=== PATIENT | female | born 1990 | race Caucasian/White ===

== ENCOUNTER 2016-05-21 09:03 | Day surgery (SDC) | payer OTHER ==
[2016-05-19 10:49] LABS: ALANINE AMINOTRANSFERASE 70 U/L (9-52); ALBUMIN 4.2 g/dL (3.5-5.0); ALKALINE PHOSPHATASE 152 U/L (38-126); ANION GAP 12 (5-19); ASPARTATE AMINO TRANSFERASE 29 U/L (14-36); BILIRUBIN,TOTAL 0.5 mg/dL (0.2-1.3); BLOOD UREA NITROGEN 9 mg/dL (7-20); CALCIUM 10.2 mg/dL (8.4-10.2); CARBON DIOXIDE 25 mmol/L (22-30); CHLORIDE 105 mmol/L (98-107); CREATININE RESULT 0.68 mg/dL (0.52-1.25); GLUCOSE 82 mg/dL (75-110); POTASSIUM 4.6 mmol/L (3.6-5.0); SODIUM 141.9 mmol/L (137-145); TOTAL PROTEIN 7.8 g/dL (6.3-8.2)
[~2016-05-21 09:03] MED LIST: AMPICILLIN SODIUM/SULBACTAM NA 3 GM in NORMAL SALINE 100 ML IV PRN; BUPIVACAINE INJ/PF LIPOSOME/PF 266 MG/20 ML SDV ONE; LACTATED RINGERS 1000 ML IV PRN; LIDOCAINE 0.5% INJ-PF (5 MG/ML) 50 ML SDV SUBCUT PRN
[2016-05-21] MEDS ORDERED: KETOROLAC TROMETHAMINE 60 MG/2 ML SDV ONE (09:34)
[2016-05-21] MEDS ORDERED: GLYCOPYRROLATE INJ 0.4 MG/2 ML VIAL ONE (09:34)
[2016-05-21] MEDS ORDERED: ONDANSETRON HCL INJ/PF 4 MG/2 ML SDV ONE (09:34)
[2016-05-21] MEDS ORDERED: DEXAMETHASONE SOD PHOSPHATE INJ 4 MG/1 ML VIAL ONE (09:34)
[2016-05-21] MEDS ORDERED: NEOSTIGMINE METHYLSULFATE 10 MG/10 ML VIAL ONE (09:34)
[2016-05-21] MEDS ORDERED: SUCCINYLCHOLINE CHLORIDE INJ 200 MG/10 ML VIAL ONE (09:34)
[2016-05-21] MEDS ORDERED: MIDAZOLAM 2 MG/2 ML INJ ONE (10:50)
[2016-05-21] MEDS ORDERED: PROPOFOL INJ 200 MG/20 ML VIAL IV ONE (10:50)
[2016-05-21] MEDS ORDERED: FENTANYL CITRATE INJ/PF 250 MCG/5 ML AMPULE ONE (10:50)
[2016-05-21] MEDS ORDERED: ACETAMINOPHEN 100 ML IV ONE (10:51)
[2016-05-21] MEDS ORDERED: PROMETHAZINE HCL INJ 25 MG/1 ML VIAL IV PRN ×2 (11:28)
[2016-05-21] MEDS ORDERED: MEPERIDINE HCL/PF INJ 25 MG/1 ML DISP.SYRIN IV PRN (11:28)
[2016-05-21] MEDS ORDERED: MORPHINE SULFATE 10 MG/ML INJ IV PRN ×2 (11:28→12:18)
[2016-05-21] MEDS ORDERED: DIPHENHYDRAMINE HCL 50 MG/ML VIAL IV PRN (11:28)
[2016-05-21] MEDS ORDERED: OXYCODONE-ACETAMINOPHEN 5-325 MG TABLET PO PRN ×3 (11:28→12:18)
[2016-05-21] MEDS ORDERED: FENTANYL CITRATE INJ/PF 100 MCG/2 ML AMPUL IV PRN ×3 (11:28)
--- NOTE | 2016-05-21 12:15 | Brief Operative Note ---
BRIEF OPERATIVE REPORT DATE OF SURGERY: 05/21/16 TIME OF SURGERY: 12:13 PREOPERATIVE DIAGNOSIS: Chronic cholecystitis POSTOPERATIVE DIAGNOSIS: Chronic cholecystitis SURGEON: DARLENE HA FINDINGS: Pericholecystic adhesions COMPLICATIONS: None ESTIMATED BLOOD LOSS: 5 ml TISSUE REMOVED OR ALTERED: Gallbladder and contents TECHNICAL PROCEDURE: Laparoscopic cholecystectomy
[2016-05-21] MEDS ORDERED: ONDANSETRON HCL INJ/PF 4 MG/2 ML SDV IV PRN (12:18)
--- NOTE | 2016-05-21 12:18 | PDOC DISCHARGE SUMMARY ---
Discharge Summary (SDC) - Discharge Final Diagnosis: Chronic cholecystitis Date of Surgery: 05/21/16 Discharge Date: 05/21/16 Condition: Good Forms: Post Operative Prescriptions: Docusate Sodium [Colace 100 mg Capsule] 100 mg PO BID #60 capsule Ibuprofen [Motrin 800 mg Tablet] 800 mg PO Q8H PRN #40 tab PRN Reason: Oxycodone HCl/Acetaminophen [Percocet 5-325 mg Tablet] 1 - 2 tab PO ASDIR PRN # 40 tablet PRN Reason: Discharge Diet: As Tolerated, Clear Liquids Respiratory Treatments at Home: Deep Breathing/Coughing, Incentive Spirometer Discharge Activity: Balance Activity w/Rest, No Lifting Over 10 Pounds, Slowly Increase Activity Home Care Assistance: Provided by Family Report the Following to Your Physician Immediately: Nausea, Vomiting, Increase in Pain, Yellow Skin, Fever over 101 Degrees, Drainage-Foul Smelling
[2016-05-21] MEDS: FENTANYL CITRATE INJ/PF 100 MCG/2 ML AMPUL ONE ×2 (12:30→12:35)
[2016-05-21] MEDS ORDERED: PROMETHAZINE HCL INJ 25 MG/1 ML VIAL ONE (12:42)
[2016-05-21] MEDS: MORPHINE SULFATE 10 MG/ML INJ ONE ×2 (12:45→12:50)
--- NOTE | 2016-05-21 13:13 | OPERATIVE REPORT E ---
Operative Report NAME: RIK PRINCE : 1990 AGE: 25Y DATE OF SURGERY: 05/21/2016 ROOM: PREOPERATIVE DIAGNOSIS: Chronic cholecystitis. POSTOPERATIVE DIAGNOSIS: Chronic cholecystitis. PROCEDURE: Laparoscopic cholecystectomy. SURGEON: DARLENE HA M.D. SALES TEAM LEADER: None. ANESTHESIA: General endotracheal anesthesia and Exparel 1.3%. FLUIDS: IV crystalloid. ESTIMATED BLOOD LOSS: 5 mL. FINDINGS: Pericholecystic adhesions. DRAINS: None. INSTRUMENT COUNT: Correct x2. IMPLANTS: None. INDICATIONS: This is a 25-year-old female who presented to the emergency department complaining of abdominal pain. The patient was evaluated and noted to have slight increase in her ALT and alkaline phosphatase. Ultrasound was performed demonstrating possible cholelithiasis and biliary sludge. The common bile duct was noted to be at 9 mm; however, there was no obvious choledocholithiasis. The patient had repeat liver function tests preoperatively, which demonstrated stability of her ALT and alkaline phosphatase with no evidence of hyperbilirubinemia. She had no history of jaundice, and therefore, she was consented for laparoscopic cholecystectomy with possible intraoperative cholangiogram. SPECIMEN: Gallbladder contents. COMPLICATIONS: None. TECHNIQUE: After informed consent was obtained, including explanation of benefits and risks of bleeding, infection, cystic duct stump leak, bile duct injury, retained gallstones, need to convert to open procedure, injury to surrounding structures, poor wound healing, chronic pain, the patient was taken to the operating room and placed supine on the operating room table. After adequate IV sedation, the patient was placed under general endotracheal anesthesia. The patient received perioperative antibiotic prophylaxis. The patient's abdomen was prepped and draped sterilely. A timeout was taken. A 5 mm incision was then made just above the umbilicus and carried down through the skin and subcutaneous tissue. Using the optical trocar and a 5 mm 30 degree scope, the peritoneal cavity was entered under direct visualization. Pneumoperitoneum was established. Three additional trocars were placed. A 12 mm trocar in the right subxiphoid and 2 additional 5 mm trocars in the right upper quadrant. Gallbladder fundus was then retracted cephalad and the infundibulum laterally. The patient was noted to have pericholecystic adhesions, which were taken down using combination of blunt and sharp dissection with electrocautery. Upon evaluation of the gallbladder, the patient had a normal-appearing common bile duct at cystic duct junction with no obvious transmural abnormalities consistent with obstruction or common bile duct dilatation. No gallstones could be palpated in the proximal common bile duct or cystic duct. The critical view was obtained using lateral to medial dissection to expose 2 tubular structures originating from the gallbladder with the liver visible posteriorly. A 5 mm Endoclip copier repair technician was used to place 3 Endoclips proximally on the cystic duct, 1 distally, and 2 clips proximally on the cystic artery and 1 distally. The cystic artery and duct were transected using Endo Viri. The gallbladder was then dissected off the gallbladder fossa using hook electrocautery, being sure to observe for subvesical ducts or vascular anomalies. There was no evidence of either. The gallbladder was removed in its entirety without spillage of stones or bile. The gallbladder was then placed in an Endo Catch bag and removed through 12 mm trocar site. The gallbladder fossa, cystic artery, and cystic duct remnant were then re-evaluated and there was no evidence of bleeding or spillage of bile. The right upper quadrant trocars were then removed under direct visualization and pneumoperitoneum was released. The 12 mm trocar was closed using a 0 Vicryl suture and a suture passer. The skin was closed using a 4-0 Monocryl subcuticular stitch. Dermabond was applied followed by Exparel. The patient tolerated the procedure well without complication and was extubated and transferred to recovery unit in stable and good condition. DICTATING PHYSICIAN: DARLENE HA M.D. [id number] PHY#: [id number] ID: [id number] JOB#: [id number] ACCT: [id number] cc:DARLENE HA M.D. > MTDD
[2016-05-21 14:59] VITALS: BP 123/67
== END 2016-05-21 14:53 | disposition home or self-care (01) ==
LOC: OROUT 09:03
PROVIDERS: ATTEND Surgery
PROC: 0FT44ZZ Resection of Gallbladder, Percutaneous Endoscopic Approach (ICD-10-PCS; principal; 2016-05-21 11:00)
DX: K80.10 Calculus of gallbladder with chronic cholecystitis without obstruction (principal); Z79.84 Long term (current) use of oral hypoglycemic drugs; Z79.899 Other long term (current) drug therapy
CPT/HCPCS: 36415; 81025; 80053; 88304 ×2; 47562; J2250; J1100; J1885; J3010 ×2; J0295; J2270; J2550; J0330; J2405; J2704; J0131; C9290; 790

== ENCOUNTER 2017-07-30 08:52 | Emergency (ER) | payer OTHER ==
[2017-07-30] MEDS ORDERED: ONDANSETRON HCL INJ/PF 4 MG/2 ML SDV IV ONE ×2 (09:25→10:26)
[2017-07-30] MEDS ORDERED: KETOROLAC TROMETHAMINE INJ/PF 30 MG/1 ML SDV IV ONE (09:25)
--- NOTE | 2017-07-30 09:26 | ER Document Report ---
ED Medical Screen (RME) - General Chief Complaint: Possible Kidney Stone Stated Complaint: FLANK PAIN Time Seen by Provider: 07/30/17 09:20 Notes: 26-year-old female patient with some left lower quadrant groin pain for 2 days got acutely worse about 730 this morning. Had noted blood in urine since last night. Last kidney stone was passed about 2 years ago. Last menstrual period was January, patient has PCO S and states she is not . I have greeted and performed a rapid initial assessment of this patient. A comprehensive ED assessment and evaluation of the patient, analysis of test results and completion of the medical decision making process will be conducted by additional ED providers. TRAVEL OUTSIDE OF THE [place] IN LAST 30 DAYS: No - Related Data Allergies/Adverse Reactions: gluten [Gluten] Allergy (Verified 07/30/17 09:17) Past Medical History - Social History Chew tobacco use (# tins/day): No Frequency of alcohol use: None Drug Abuse: None - Past Medical History Cardiac Medical History: Denies: Hx Coronary Artery Disease, Hx Heart Attack, Hx Hypertension Pulmonary Medical History: Denies: Hx Asthma, Hx Bronchitis, Hx COPD, Hx Pneumonia Neurological Medical History: Denies: Hx Cerebrovascular Accident, Hx Seizures Renal/ Medical History: Reports: Hx Kidney Stones. Denies: Hx Peritoneal Dialysis Musculoskeltal Medical History: Denies Hx Arthritis - Immunizations Hx Diphtheria, Pertussis, Tetanus Vaccination: Yes Physical Exam - Vital signs Vitals: Temp Pulse Resp BP Pulse Ox 98.4 F 76 22 H 119/77 98 07/30/17 08:55 07/30/17 08:55 07/30/17 08:55 07/30/17 08:55 07/30/17 08:55 Course - Vital Signs Vital signs: Temp Pulse Resp BP Pulse Ox 98.4 F 76 22 H 119/77 98 07/30/17 08:55 07/30/17 08:55 07/30/17 08:55 07/30/17 08:55 07/30/17 08:55
[2017-07-30] MEDS ORDERED: NORMAL SALINE 1000 ML 1,000 ML IV ONE (09:27)
[2017-07-30 09:57] LABS: ABSOLUTE BASOPHILS # (AUTO) 0.1 10^3/uL (0.0-0.2); ABSOLUTE EOSINOPHILS # (AUTO) 0.2 10^3/uL (0.0-0.6); ABSOLUTE LYMPHOCYTES (AUTO) 1.7 10^3/uL (0.5-4.7); ABSOLUTE MONOCYTES (AUTO) 0.5 10^3/uL (0.1-1.4); ABSOLUTE NEUT (AUTO) 5.9 10^3/uL (1.7-8.2); BASOPHILS % (AUTO) 0.8 % (0-2); HEMATOCRIT 38.5 % (36.0-47.0); HEMOGLOBIN 13.1 g/dL (12.0-15.5); LYMPHOCYTES % (AUTO) 20.4 % (13-45); MEAN CORPUSCULAR HEMOGLOBIN 28.3 pg (27.0-33.4); MEAN CORPUSCULAR HGB CONC 33.9 g/dL (32.0-36.0); MEAN CORPUSCULAR VOLUME 84 fl (80-97); MONOCYTES % (AUTO) 6.5 % (3-13); PLATELET COUNT 363 10^3/uL (150-450); RED BLOOD COUNT 4.61 10^6/uL (3.72-5.28); SEGMENTED NEUTROPHILS % (AUTO) 70.3 % (42-78); TOTAL CELLS COUNTED % (AUTO) 100 %; WHITE BLOOD COUNT 8.4 10^3/uL (4.0-10.5)
[2017-07-30 10:12] LABS: ALANINE AMINOTRANSFERASE 52 U/L (9-52); ALBUMIN 4.2 g/dL (3.5-5.0); ALKALINE PHOSPHATASE 136 U/L (38-126); ANION GAP 14 (5-19); ASPARTATE AMINO TRANSFERASE 35 U/L (14-36); BILIRUBIN,DIRECT 0.2 mg/dL (0.0-0.4); BILIRUBIN,TOTAL 0.2 mg/dL (0.2-1.3); BLOOD UREA NITROGEN 16 mg/dL (7-20); CALCIUM 10.5 mg/dL (8.4-10.2); CARBON DIOXIDE 20 mmol/L (22-30); CHLORIDE 110 mmol/L (98-107); GLUCOSE 99 mg/dL (75-110); POTASSIUM 4.7 mmol/L (3.6-5.0); SODIUM 143.7 mmol/L (137-145)
[2017-07-30 10:25] LABS: APPEARANCE,URINE CLEAR; BILIRUBIN,URINE NEGATIVE (NEGATIVE); COLOR,URINE STRAW; GLUCOSE, URINE NEGATIVE (NEGATIVE); KETONES,URINE NEGATIVE (NEGATIVE); LEUKOCYTE ESTERASE,URINE NEGATIVE (NEGATIVE); NITRITE,URINE NEGATIVE (NEGATIVE); PROTEIN,URINE NEGATIVE (NEGATIVE); URINE SPECIFIC GRAVITY 1.013; UROBILINOGEN,URINE NEGATIVE mg/dL (<2.0)
[2017-07-30] MEDS ORDERED: HYDROMORPHONE HCL INJ/PF 2 MG/ML AMPULE IV ONE (10:25)
[2017-07-30] MEDS ORDERED: TAMSULOSIN HCL 0.4 MG CAP.SR.24H PO ONE (10:26)
--- NOTE | 2017-07-30 10:26 | ER Document Report ---
ED GI/ - General Chief Complaint: Possible Kidney Stone Stated Complaint: FLANK PAIN Time Seen by Provider: 07/30/17 09:20 Notes: 26-year-old female patient emergency department chief complaint of lower abdominal pain. Patient states that "I am having a kidney stone". Patient states that she has met multiple kidney stones in the past. Blood in her urine. No fever, chills, sweats. No burning with urination prior to this. Has had lithotripsy in the past. Had some bilateral flank pain but mostly on the right side. TRAVEL OUTSIDE OF THE [place] IN LAST 30 DAYS: No - HPI Patient complains to provider of: Hematuria Onset: Just prior to arrival Timing/Duration: Sudden, Worse - Related Data Allergies/Adverse Reactions: gluten [Gluten] Allergy (Verified 07/30/17 09:17) Past Medical History - General Information source: Patient - Social History Smoking Status: Current Every Day Smoker Cigarette use (# per day): Yes Chew tobacco use (# tins/day): No Frequency of alcohol use: None Drug Abuse: None Lives with: Family Family History: Reviewed & Not Pertinent Patient has suicidal ideation: No Patient has homicidal ideation: No - Past Medical History Cardiac Medical History: Denies: Hx Coronary Artery Disease, Hx Heart Attack, Hx Hypertension Pulmonary Medical History: Denies: Hx Asthma, Hx Bronchitis, Hx COPD, Hx Pneumonia Neurological Medical History: Denies: Hx Cerebrovascular Accident, Hx Seizures Renal/ Medical History: Reports: Hx Kidney Stones. Denies: Hx Peritoneal Dialysis Musculoskeltal Medical History: Denies Hx Arthritis - Immunizations Hx Diphtheria, Pertussis, Tetanus Vaccination: Yes Review of Systems - Review of Systems Constitutional: denies: Fever, Malaise, Weakness EENT: denies: Blurred vision, Throat pain, Mouth pain Cardiovascular: denies: Chest pain, Palpitations, Heart racing Respiratory: denies: Cough, Hurts to breathe, Hemoptysis, Short of breath, Wheezing Gastrointestinal: Abdominal pain, Nausea. denies: Diarrhea, Black stools Genitourinary: Flank pain, Hematuria, Urgency Female Genitourinary: denies: , Vaginal discharge, Vaginal bleeding, Vaginal odor Musculoskeletal: Back pain. denies: Muscle pain, Muscle stiffness, Neck pain Skin: denies: Lesions, Lumps, Rash Hematologic/Lymphatic: denies: Blood clots, Easy bleeding, Easy bruising Neurological/Psychological: denies: Confusion, Weakness, Numbness Physical Exam - Vital signs Vitals: Temp Pulse Resp BP Pulse Ox 98.4 F 76 22 H 119/77 98 07/30/17 08:55 07/30/17 08:55 07/30/17 08:55 07/30/17 08:55 07/30/17 08:55 Interpretation: Normal - General General appearance: Appears well, Alert In distress: Moderate Notes: Uncomfortable appearing - HEENT Head: Normocephalic, Atraumatic Eyes: Normal Pupils: PERRL - Respiratory Respiratory status: No respiratory distress Chest status: Nontender Breath sounds: Normal Chest palpation: Normal - Cardiovascular Rhythm: Regular Heart sounds: Normal auscultation Murmur: No - Abdominal Inspection: Normal Distension: No distension Bowel sounds: Normal Tenderness: Tender, Other - In the suprapubic region Organomegaly: No organomegaly - Back Back: Normal, Nontender - Extremities General upper extremity: Normal inspection, Nontender, Normal color, Normal ROM , Normal temperature General lower extremity: Normal inspection, Nontender, Normal color, Normal ROM , Normal temperature, Normal weight bearing. No: Klaus's sign - Neurological Neuro grossly intact: Yes Cognition: Normal Orientation: AAOx4 [place] Coma Scale Eye Opening: Spontaneous [place] Coma Scale Verbal: Oriented E[place] Coma Scale Motor: Obeys Commands Evelin Coma Scale Total: 15 Speech: Normal Motor strength normal: LUE, RUE, LLE, RLE Sensory: Normal - Psychological Associated symptoms: Normal affect, Normal mood - Skin Skin Temperature: Warm Skin Moisture: Dry Skin Color: Normal Course - Re-evaluation Re-evalutation: 07/30/17 11:33 Patient with colicky pain. Mild tenderness suprapubic area. Labs are unremarkable with exception of hematuria. No evidence of infection. History of kidney stones. Do not feel compelled at this time to do CT scan. Pain is under control after Dilaudid. More likely this does represent a kidney stone. Likely will DC home pain meds 07/30/17 11:34 Ultrasound does not show any significant hydronephrosis. Patient is resting comfortably at this time. Will DC. 07/30/17 11:42 Renal Ultrasound 07/30/17 10:43 IMPRESSION: NORMAL RENAL ULTRASOUND. - Vital Signs Vital signs: Temp Pulse Resp BP Pulse Ox 98.4 F 76 22 H 119/77 98 07/30/17 08:55 07/30/17 08:55 07/30/17 08:55 07/30/17 08:55 07/30/17 08:55 - Laboratory Result Diagrams: 07/30/17 09:25 07/30/17 09:25 Laboratory results interpreted by me: 07/30/17 07/30/17 09:25 09:25 Chloride 110 H Carbon Dioxide 20 L Calcium 10.5 H Alkaline Phosphatase 136 H Urine Blood LARGE H Discharge - Discharge Clinical Impression: Kidney stone on right side Condition: Good Disposition: HOME, SELF-CARE Instructions: Kidney Stone ([facility]) Prescriptions: Hydrocodone/Acetaminophen [[place] 5-325 mg Tablet] 1 tab PO TID PRN 3 Days #9 tablet PRN Reason: Ondansetron [Zofran Odt 4 mg Tablet] 1 - 2 tab PO Q4H PRN #15 tab.rapdis PRN Reason: For Nausea/Vomiting Tamsulosin HCl [Flomax 0.4 mg Cap.sr] 0.4 mg PO DAILY #7 cap.sr.24h Referrals: GUERA SANABRIA MD [[facility]IOLETTA BAILEY] - Follow up as needed
--- NOTE | 2017-07-30 11:24 | RADIOLOGY REPORT (SQ) ---
EXAM DESCRIPTION: U/S RETROPERITON LTD COMPLETED DATE/TIME: 07/30/2017 11:05 am REASON FOR STUDY: right flank pain , hx of stones COMPARISON: None. TECHNIQUE: Dynamic and static grayscale images acquired of the kidneys and bladder and recorded on P ACS. Additional selected color Doppler and spectral images recorded. LIMITATIONS: None. FINDINGS: RIGHT KIDNEY: Normal size. Normal echogenicity. No solid or suspicious masses. No h ydronephrosis. No calcifications. LEFT KIDNEY: Normal size. Normal echogenicity. No solid or suspicious masses. No hydronephrosi s. No calcifications. BLADDER: Not visualized. OTHER FINDINGS: No other significant finding. IMPRESSION: NORMAL RENAL ULTRASOUND. TECHNICAL DOCUMENTATION: JOB ID: [id number] [employer]- All Rights Reserved Reading location - IP/workstation name: [email or web address]
[2017-07-30 11:47] VITALS: BP 104/68
== END 2017-07-30 12:09 | disposition home or self-care (01) ==
LOC: ER 08:52
DX: N20.0 Calculus of kidney (principal); R10.30 Lower abdominal pain, unspecified; R31.9 Hematuria, unspecified; R11.0 Nausea; R39.15 Urgency of urination; F17.210 Nicotine dependence, cigarettes, uncomplicated
CPT/HCPCS: 96376; 99284; 96361; 96374; 96375; 36415; 87086; 84703; 85025; 80053; 81001; 76775; J1885; J1170; J2405; J7030

== ENCOUNTER 2017-08-01 11:52 | Emergency (ER) | payer BC, OTHER ==
[2017-08-01] MEDS ORDERED: ONDANSETRON HCL INJ/PF 4 MG/2 ML SDV IV ONE ×2 (12:46→14:16)
[2017-08-01] MEDS ORDERED: FENTANYL CITRATE INJ/PF 100 MCG/2 ML AMPUL IV ONE (12:46)
[2017-08-01] MEDS ORDERED: RINGERS SOLUTION,LACTATED 1,000 ML IV ONE (12:46)
--- NOTE | 2017-08-01 12:48 | ER Document Report ---
ED Medical Screen (RME) - General Chief Complaint: Possible Kidney Stone Stated Complaint: FLANK PAIN Time Seen by Provider: 08/01/17 12:39 Notes: RAPID MEDICAL EVALUATION DISCLOSURE I have seen this patient as part of a Rapid Medical Evaluation and, if applicable, placed any initially appropriate orders. The patient will be seen and fully evaluated, including a full history and physical exam, by a provider ( in Main ED or Fast Track) when a room becomes available. 25-year-old female PMH kidney stones here with complaints of right flank pain ongoing for 5 days now. She was seen here in the ED and had a negative renal ultrasound but did have hematuria on urinalysis. She was sent home with [place] Zofran Flomax which she has been taking but with minimal relief. She has an appointment with the urologist next Tuesday and they told her to come here due to the persistent symptoms. They were unable to get her in any sooner. EXAM No CVA tenderness Minimal right lumbar paraspinal muscle TTP No midline spine tenderness Mild to moderate suprapubic tenderness TRAVEL OUTSIDE OF THE [place] IN LAST 30 DAYS: No - Related Data Allergies/Adverse Reactions: gluten [Gluten] Allergy (Verified 07/30/17 09:17) Past Medical History - Social History Frequency of alcohol use: None Drug Abuse: None - Past Medical History Cardiac Medical History: Denies: Hx Coronary Artery Disease, Hx Heart Attack, Hx Hypertension Pulmonary Medical History: Denies: Hx Asthma, Hx Bronchitis, Hx COPD, Hx Pneumonia Neurological Medical History: Denies: Hx Cerebrovascular Accident, Hx Seizures Renal/ Medical History: Reports: Hx Kidney Stones. Denies: Hx Peritoneal Dialysis Musculoskeltal Medical History: Denies Hx Arthritis Past Surgical History: Reports: Hx Kidney (Renal Surgery) - stent for stones - Immunizations Hx Diphtheria, Pertussis, Tetanus Vaccination: Yes Physical Exam - Vital signs Vitals: Temp Pulse Resp BP Pulse Ox 97.7 F 92 18 122/72 96 08/01/17 12:09 08/01/17 12:09 08/01/17 12:09 08/01/17 12:09 08/01/17 12:09 Course - Vital Signs Vital signs: Temp Pulse Resp BP Pulse Ox 97.7 F 92 18 122/72 96 08/01/17 12:09 08/01/17 12:09 08/01/17 12:09 08/01/17 12:09 08/01/17 12:09
[2017-08-01 13:11] LABS: ABSOLUTE BASOPHILS # (AUTO) 0.1 10^3/uL (0.0-0.2); ABSOLUTE EOSINOPHILS # (AUTO) 0.2 10^3/uL (0.0-0.6); ABSOLUTE LYMPHOCYTES (AUTO) 1.5 10^3/uL (0.5-4.7); ABSOLUTE MONOCYTES (AUTO) 0.4 10^3/uL (0.1-1.4); ABSOLUTE NEUT (AUTO) 5.4 10^3/uL (1.7-8.2); EOSINOPHILS % (AUTO) 2.1 % (0-6); HEMATOCRIT 38.7 % (36.0-47.0); LYMPHOCYTES % (AUTO) 20.1 % (13-45); MEAN CORPUSCULAR HEMOGLOBIN 28.1 pg (27.0-33.4); MEAN CORPUSCULAR HGB CONC 33.6 g/dL (32.0-36.0); MEAN CORPUSCULAR VOLUME 84 fl (80-97); MONOCYTES % (AUTO) 4.9 % (3-13); PLATELET COUNT 346 10^3/uL (150-450); RED BLOOD COUNT 4.64 10^6/uL (3.72-5.28); RED CELL DISTRIBUTION WIDTH 14.1 % (11.5-14.0); SEGMENTED NEUTROPHILS % (AUTO) 71.9 % (42-78); TOTAL CELLS COUNTED % (AUTO) 100 %; WHITE BLOOD COUNT 7.6 10^3/uL (4.0-10.5)
[2017-08-01 13:15] LABS: APPEARANCE,URINE CLEAR; BILIRUBIN,URINE NEGATIVE (NEGATIVE); COLOR,URINE YELLOW; GLUCOSE, URINE NEGATIVE (NEGATIVE); KETONES,URINE NEGATIVE (NEGATIVE); LEUKOCYTE ESTERASE,URINE NEGATIVE (NEGATIVE); NITRITE,URINE NEGATIVE (NEGATIVE); PROTEIN,URINE NEGATIVE (NEGATIVE); URINE SPECIFIC GRAVITY 1.015; UROBILINOGEN,URINE NEGATIVE mg/dL (<2.0)
[2017-08-01 13:33] LABS: ANION GAP 13 (5-19); BLOOD UREA NITROGEN 13 mg/dL (7-20); CALCIUM 9.9 mg/dL (8.4-10.2); CARBON DIOXIDE 27 mmol/L (22-30); CHLORIDE 105 mmol/L (98-107); GLUCOSE 111 mg/dL (75-110); POTASSIUM 4.4 mmol/L (3.6-5.0); SODIUM 144.9 mmol/L (137-145)
[2017-08-01] MEDS ORDERED: HYDROMORPHONE HCL INJ/PF 2 MG/ML AMPULE IV ONE (14:07)
--- NOTE | 2017-08-01 14:07 | ER Document Report ---
ED General - General Chief Complaint: Possible Kidney Stone Stated Complaint: FLANK PAIN Time Seen by Provider: 08/01/17 12:39 Mode of Arrival: Ambulatory Information source: Patient Notes: This is a 26-year-old female with a history of kidney stones in the past who presents to the emergency room with right flank pain for the past week. Patient was placed on pain medicines, Flomax and anti-emetics and states that she was referred to a urologist. The urologist would not see her because her medical card is not come in the mail yet. She returns to the ER with pain. She denies fever. She states the pain is gotten a little bit better but she is ran out of the medicines ( except for the Flomax). TRAVEL OUTSIDE OF THE [place] IN LAST 30 DAYS: No - HPI Onset: Just prior to arrival Onset/Duration: Gradual Quality of pain: No pain Severity: None Pain Level: Denies Associated symptoms: denies: Chest pain, Fever, Shortness of breath Exacerbated by: Denies Relieved by: Denies Similar symptoms previously: Yes Recently seen / treated by doctor: Yes - Related Data Allergies/Adverse Reactions: gluten [Gluten] Allergy (Verified 07/30/17 09:17) Past Medical History - General Information source: Patient - Social History Smoking Status: Current Every Day Smoker Cigarette use (# per day): Yes - 1 pack per day Chew tobacco use (# tins/day): No Frequency of alcohol use: None Drug Abuse: None Lives with: Family Family History: Reviewed & Not Pertinent Patient has suicidal ideation: No Patient has homicidal ideation: No - Past Medical History Cardiac Medical History: Denies: Hx Coronary Artery Disease, Hx Heart Attack, Hx Hypertension Pulmonary Medical History: Denies: Hx Asthma, Hx Bronchitis, Hx COPD, Hx Pneumonia Neurological Medical History: Denies: Hx Cerebrovascular Accident, Hx Seizures Renal/ Medical History: Reports: Hx Kidney Stones. Denies: Hx Peritoneal Dialysis Musculoskeltal Medical History: Denies Hx Arthritis Past Surgical History: Reports: Hx Kidney (Renal Surgery) - stent for stones - Immunizations Hx Diphtheria, Pertussis, Tetanus Vaccination: Yes Review of Systems - Review of Systems Constitutional: denies: Chills, Fever EENT: No symptoms reported Cardiovascular: No symptoms reported Respiratory: No symptoms reported Gastrointestinal: See HPI Genitourinary: No symptoms reported Female Genitourinary: No symptoms reported Musculoskeletal: No symptoms reported Skin: No symptoms reported Hematologic/Lymphatic: No symptoms reported Neurological/Psychological: No symptoms reported Physical Exam - Vital signs Vitals: Temp Pulse Resp BP Pulse Ox 97.7 F 92 18 122/72 96 08/01/17 12:09 08/01/17 12:09 08/01/17 12:09 08/01/17 12:09 08/01/17 12:09 Notes: Physical exam: GENERAL: A 6-year-old female, alert and oriented 3 in no acute distress HEAD: Atraumatic, normocephalic. EYES: Pupils equal round and reactive to light, extraocular movements intact, sclera anicteric, conjunctiva are normal. ENT: TMs normal, nares patent, oropharynx clear without exudates. Moist mucous membranes. NECK: Normal range of motion, supple without obvious mass or JVD. LUNGS: Breath sounds clear to auscultation bilaterally and equal. No wheezes rales or rhonchi. HEART: Regular rate and rhythm without murmurs, rubs or gallops. ABDOMEN: Soft, normoactive bowel sounds. No tenderness to palpation. No guarding, no rebound. No masses appreciated. EXTREMITIES: Normal range of motion, no pitting or edema. No clubbing or cyanosis. NEUROLOGICAL: Cranial nerves II through XII grossly intact. Normal speech, moving all extremities. PSYCH: Normal mood, normal affect. SKIN: Warm, Dry, normal turgor, no rashes or lesions noted. Bedside ultrasound: No obvious hydronephrosis. Course - Vital Signs Vital signs: Temp Pulse Resp BP Pulse Ox 97.6 F 90 18 108/70 100 08/01/17 17:46 08/01/17 17:46 08/01/17 17:46 08/01/17 17:46 08/01/17 17:46 - Laboratory Result Diagrams: 08/01/17 12:58 08/01/17 12:58 Laboratory results interpreted by me: 08/01/17 08/01/17 12:58 12:58 RDW 14.1 H Glucose 111 H Discharge - Discharge Clinical Impression: Kidney stone Condition: Stable Disposition: HOME, SELF-CARE Additional Instructions: Your lab tests today look pretty good. Your urine was actually improved. It oftentimes takes up to 2 weeks to pass the stone completely. Drink plenty of fluids, take ibuprofen. Take the [place] (hydrocodone) as prescribed. Continue the Zofran for nausea. Continue the Flomax until you done with the short course. Follow-up with the urologist when the insurance card comes through: It is recommended that you follow-up with a urologist: [facility] [place] Office [address] [place], [place] [phone] [place] Office [address] [facility] [address]. [place], [place] [phone] Prescriptions: Hydrocodone/Acetaminophen [[place] 5-325 mg Tablet] 1 tab PO Q6HP PRN #20 tablet PRN Reason: Ondansetron HCl [Zofran 4 mg Tablet] 1 - 2 tab PO Q4H PRN #10 tablet PRN Reason:
[2017-08-01 17:52] VITALS: BP 108/70
== END 2017-08-01 17:52 | disposition home or self-care (01) ==
LOC: ER 11:52
DX: N20.0 Calculus of kidney (principal); F17.210 Nicotine dependence, cigarettes, uncomplicated
CPT/HCPCS: 96376; 99284; 96361; 96374; 96375; 36415; 84702; 85025; 80048; 81001; J3010; J1170; J2405; J7120

== ENCOUNTER 2017-08-05 20:56 | Emergency (ER) | payer BC ==
[2017-08-05] MEDS ORDERED: KETOROLAC TROMETHAMINE INJ/PF 30 MG/1 ML SDV IV ONE ×2 (21:35→23:13)
[2017-08-05] MEDS ORDERED: FENTANYL CITRATE INJ/PF 100 MCG/2 ML AMPUL IV PRN (21:35)
[2017-08-05] MEDS ORDERED: HYDROMORPHONE HCL INJ/PF 2 MG/ML AMPULE IV ONE (21:52)
[2017-08-05] MEDS ORDERED: ONDANSETRON HCL INJ/PF 4 MG/2 ML SDV IV ONE (21:52)
--- NOTE | 2017-08-05 21:54 | ER Document Report ---
ED General - General Chief Complaint: Possible Kidney Stone Stated Complaint: FLANK PAIN Time Seen by Provider: 08/05/17 21:34 Notes: Patient is a 26 year old female without chronic medical problems, does have a history of recurrent kidney stones who presents with 1 week of right flank pain and suprapubic abdominal pain. Patient states that this feels exactly the same as all of her prior kidney stones. She describes it as a severe, stabbing, intermittent pain. She has been taking [place] and ibuprofen at home with minimal improvement of her symptoms. Nothing worsens her symptoms. She denies any fever or constitutional symptoms but notes that she has had some nausea and vomiting. She is scheduled to see a urologist on Tuesday of the upcoming week. Nothing is new or different about her symptoms today that prompted a return visit to the emergency department only that her symptoms have not yet improved or resolved. TRAVEL OUTSIDE OF THE [place] IN LAST 30 DAYS: No - Related Data Allergies/Adverse Reactions: gluten [Gluten] Allergy (Verified 08/05/17 22:06) Past Medical History - General Information source: Patient - Social History Smoking Status: Never Smoker Frequency of alcohol use: None Drug Abuse: None Lives with: Spouse/Significant other Family History: Reviewed & Not Pertinent - Past Medical History Cardiac Medical History: Denies: Hx Coronary Artery Disease, Hx Heart Attack, Hx Hypertension Pulmonary Medical History: Denies: Hx Asthma, Hx Bronchitis, Hx COPD, Hx Pneumonia Neurological Medical History: Denies: Hx Cerebrovascular Accident, Hx Seizures Renal/ Medical History: Reports: Hx Kidney Stones. Denies: Hx Peritoneal Dialysis Musculoskeltal Medical History: Denies Hx Arthritis Past Surgical History: Reports: Hx Kidney (Renal Surgery) - stent for stones - Immunizations Hx Diphtheria, Pertussis, Tetanus Vaccination: Yes Review of Systems - Review of Systems Notes: Constitutional: Negative for fever. HENT: Negative for sore throat. Eyes: Negative for visual changes. Cardiovascular: Negative for chest pain. Respiratory: Negative for shortness of breath. Gastrointestinal: Positive for right flank tenderness, nausea and vomiting Genitourinary: Positive for hematuria Musculoskeletal: Negative for back pain. Skin: Negative for rash. Neurological: Negative for headaches, weakness or numbness. 10 point ROS negative except as marked above and in HPI. Physical Exam - Vital signs Vitals: Temp Pulse Resp BP Pulse Ox 97.8 F 87 22 H 115/73 98 08/05/17 21:02 08/05/17 21:02 08/05/17 21:02 08/05/17 21:02 08/05/17 21:02 Interpretation: Normal Notes: PHYSICAL EXAMINATION: GENERAL: Appears moderately uncomfortable in no acute distress HEAD: Atraumatic, normocephalic. EYES: Pupils equal round and reactive to light, extraocular movements intact, sclera anicteric, conjunctiva are normal. ENT: nares patent, oropharynx clear without exudates. Moist mucous membranes. NECK: Normal range of motion, supple without lymphadenopathy LUNGS: Breath sounds clear to auscultation bilaterally and equal. No wheezes rales or rhonchi. HEART: Regular rate and rhythm without murmurs ABDOMEN: Soft, nontender, normoactive bowel sounds. No guarding, no rebound. No masses appreciated. Mild right CVA tenderness. EXTREMITIES: Normal range of motion, no pitting or edema. No cyanosis. NEUROLOGICAL: No focal neurological deficits. Moves all extremities spontaneously and on command. PSYCH: Normal mood, normal affect. SKIN: Warm, Dry, normal turgor, no rashes or lesions noted. Course - Re-evaluation Re-evalutation: 08/05/17 21:54 Presents with findings consistent with acute nephrolithiasis. Urinalysis does show hematuria. Laboratory otherwise unremarkable. Pain was able to be controlled here in the emergency department. Patient is tolerating oral intake. Clinical history is not consistent with an acute abdominal aneurysm or dissection, HI, or pulmonary embolus. Urinalysis does not show findings consistent with an infected stone. Vitals have remained within normal limits. Patient will be discharged with recommendations to follow-up with urology, pain medications, and return precautions. I have informed her that a stone can take up to 2-3 weeks to pass and continue to encourage her to follow-up with urology at her earliest ability. At this time will discharge with return precautions and follow-up recommendations. Verbal discharge instructions given a the bedside and opportunity for questions given. Medication warnings reviewed. Patient is in agreement with this plan and has verbalized understanding of return precautions and the need for primary care follow-up in the next 24-72 hours. - Vital Signs Vital signs: Temp Pulse Resp BP Pulse Ox 97.5 F 67 16 124/70 99 08/05/17 23:35 08/05/17 23:35 08/05/17 23:35 08/05/17 23:35 08/05/17 23:35 - Laboratory Laboratory results interpreted by me: 08/05/17 21:55 Urine Protein 30 H Urine Blood MODERATE H Urine Urobilinogen 4.0 H Ur Leukocyte Esterase TRACE H - Diagnostic Test Radiology reviewed: Image reviewed, Reports reviewed Discharge - Discharge Clinical Impression: Kidney stone on right side, Right flank tenderness Condition: Good Disposition: HOME, SELF-CARE Additional Instructions: Your symptoms should improve over the course of the next one week. If you continue to have pain for greater than one week or your pain is not controlled with the pain medications that you have been sent home with you need to return to the emergency department. Please also return if you develop fever, persistent vomiting, or any other symptoms that are concerning to you. You should take ibuprofen 600 mg every 6 hours and use the oral morphine as prescribed only for pain not controlled by ibuprofen. You are also been sent home with a medication called Flomax to help pass the stone. You've been given Zofran to assist with nausea. Please follow-up with urology in the next 2-3 days. Prescriptions: Morphine Sulfate [Morphine Ir 15 mg Tablet] 15 - 30 mg PO Q4HP PRN #20 tablet PRN Reason:
[2017-08-05 22:27] LABS: APPEARANCE,URINE CLOUDY; BILIRUBIN,URINE NEGATIVE (NEGATIVE); CALCIUM OXALATE CRYSTALS,URINE TOO NUMEROUS TO CNT /HPF; COLOR,URINE YELLOW; GLUCOSE, URINE NEGATIVE (NEGATIVE); KETONES,URINE NEGATIVE (NEGATIVE); LEUKOCYTE ESTERASE,URINE TRACE (NEGATIVE); NITRITE,URINE NEGATIVE (NEGATIVE); PROTEIN,URINE 30 mg/dL (NEGATIVE); URINE SPECIFIC GRAVITY 1.031
[2017-08-05] MEDS ORDERED: LACTULOSE SYRUP 20 GM/30 ML UDCUP PO ONE (23:12)
[2017-08-05] MEDS ORDERED: MORPHINE SULFATE IR 15 MG TABLET PO ONE (23:13)
[2017-08-05] MEDS ORDERED: ONDANSETRON ODT 4 MG TAB (6 TAB/ER DISP) PO PRN (23:13)
--- NOTE | 2017-08-05 23:18 | RADIOLOGY REPORT (SQ) ---
EXAM DESCRIPTION: XR ABDOMEN 1 VIEW (KUB) CLINICAL HISTORY: 26 years Female, eval stone progression COMPARISON: None. NUMBER OF VIEWS/TECHNIQUE: 2 FINDINGS: Intestinal gas pattern is within normal limits. Paucity of bowel gas. Punctate calcifications in bilateral renal silhouette may indicate small nephrolithiasis. Right upper abdominal clips. Grossly intact skeletal structures. IMPRESSION: Possible punctate nephrolithiasis bilaterally.
[2017-08-05 23:47] VITALS: BP 124/70
== END 2017-08-05 23:48 | disposition home or self-care (01) ==
LOC: ER 20:56
DX: N20.0 Calculus of kidney (principal); R31.9 Hematuria, unspecified; R11.2 Nausea with vomiting, unspecified
CPT/HCPCS: 96376; 99284; 96374; 96375; 81025; 81001; 74018; J1885; J1170; J2405

== ENCOUNTER 2017-08-11 09:46 | Emergency (ER) | payer BC ==
[2017-08-11] MEDS ORDERED: ACETAMINOPHEN 325 MG TABLET PO ONE (11:35)
[2017-08-11] MEDS ORDERED: MORPHINE SULFATE 10 MG/ML INJ IM ONE (11:35)
[2017-08-11] MEDS ORDERED: ONDANSETRON HCL 8 MG TABLET PO ONE (11:35)
[2017-08-11] MEDS ORDERED: KETOROLAC TROMETHAMINE 60 MG/2 ML SDV IM ONE (11:35)
[2017-08-11] MEDS ORDERED: TAMSULOSIN HCL 0.4 MG CAP.SR.24H PO ONE (11:36)
[2017-08-11 12:49] LABS: BLOOD UREA NITROGEN 12 mg/dL (7-20); CALCIUM 10.1 mg/dL (8.4-10.2); GLUCOSE 89 mg/dL (75-110)
[2017-08-11 12:50] LABS: ANION GAP 16 (5-19); CARBON DIOXIDE 25 mmol/L (22-30); CHLORIDE 104 mmol/L (98-107); POTASSIUM 3.9 mmol/L (3.6-5.0); SODIUM 144.9 mmol/L (137-145)
[2017-08-11 13:45] LABS: APPEARANCE,URINE CLEAR; BILIRUBIN,URINE NEGATIVE (NEGATIVE); COLOR,URINE YELLOW; GLUCOSE, URINE NEGATIVE (NEGATIVE); KETONES,URINE 80 mg/dL (NEGATIVE); LEUKOCYTE ESTERASE,URINE NEGATIVE (NEGATIVE); NITRITE,URINE NEGATIVE (NEGATIVE); PROTEIN,URINE NEGATIVE (NEGATIVE); URINE SPECIFIC GRAVITY 1.017
[2017-08-11] MEDS ORDERED: OXYCODONE-ACETAMINOPHEN 5-325 MG TABLET PO ONE (14:04)
--- NOTE | 2017-08-11 14:07 | ER Document Report ---
ED General - General Chief Complaint: Flank Pain Stated Complaint: FLANK PAIN Time Seen by Provider: 08/11/17 11:28 Mode of Arrival: Ambulatory Notes: 26-year-old female with known recurrent stones presents with complaint of right lower quadrant and right flank pain that has been ongoing for several weeks. Patient was seen earlier this month and found to have a large amount of blood in her urine and imaging indicative of a stone. Patient states that she gets stones on a monthly basis. She often requires lithotripsy. She had an appointment with urology but was confused about which office she was supposed to be at and missed the appointment. Patient is out of pain medication, nausea medication. She states that she has had multiple CAT scans of her abdomen because of this. TRAVEL OUTSIDE OF THE [place] IN LAST 30 DAYS: No - HPI Onset: Last week Onset/Duration: Constant, Persistent Quality of pain: Stabbing Severity: Moderate Associated symptoms: Nausea, Vomiting, Other - Right flank pain Exacerbated by: Denies Relieved by: Denies Similar symptoms previously: Yes Recently seen / treated by doctor: Yes - Related Data Allergies/Adverse Reactions: gluten [Gluten] Allergy (Verified 08/11/17 09:48) Past Medical History - General Information source: Patient - Social History Smoking Status: Current Every Day Smoker Chew tobacco use (# tins/day): No Frequency of alcohol use: None Drug Abuse: None Family History: Reviewed & Not Pertinent Patient has suicidal ideation: No Patient has homicidal ideation: No - Past Medical History Cardiac Medical History: Denies: Hx Coronary Artery Disease, Hx Heart Attack, Hx Hypertension Pulmonary Medical History: Denies: Hx Asthma, Hx Bronchitis, Hx COPD, Hx Pneumonia Neurological Medical History: Denies: Hx Cerebrovascular Accident, Hx Seizures Renal/ Medical History: Reports: Hx Kidney Stones. Denies: Hx Peritoneal Dialysis Musculoskeltal Medical History: Denies Hx Arthritis Past Surgical History: Reports: Hx Kidney (Renal Surgery) - stent for stones - Immunizations Hx Diphtheria, Pertussis, Tetanus Vaccination: Yes Review of Systems - Review of Systems Notes: REVIEW OF SYSTEMS: CONSTITUTIONAL : Denies fever, chills, or sweats. Denies recent illness. Denies weight loss, recent hospitalizations. EENT: Denies visula changes, eye pain. Denies nasal or sinus congestion or discharge. Denies sore throat, oral lesions, difficulty swallowing. CARDIOVASCULAR: Denies chest pain. Denies palpitations or racing or irregular heart beat. Denies lower extremity edema. RESPIRATORY: Denies cough, cold, or chest congestion. Denies shortness of breath, difficulty breathing, or wheezing. GASTROINTESTINAL: Admits to right lower quadrant abdominal pain, nausea, vomiting right CVA tenderness. she denies tarry stools. Denies constipation. GENITOURINARY: patient admits to dysuria, hematuria MUSCULOSKELETAL: Denies back or neck pain or stiffness. Denies joint pain or swelling. SKIN: Denies rash, lesions or sores. HEMATOLOGIC : Denies easy bruising or bleeding. LYMPHATIC: Denies swollen, enlarged glands. NEUROLOGICAL: Denies confusion or altered mental status. Denies passing out or loss of consciousness. Denies dizziness or lightheadedness. Denies headache. Denies weakness or paralysis or loss of use of either side. Denies problems with gait or speech. Denies sensory loss, numbness, or tingling. Denies seizures. PSYCHIATRIC: Denies anxiety or stress. Denies depression, suicidal ideation, or homicidal ideation. Physical Exam - Vital signs Vitals: Temp Pulse Resp BP Pulse Ox 98.1 F 72 20 120/69 99 08/11/17 10:17 08/11/17 10:17 08/11/17 10:17 08/11/17 10:17 08/11/17 10:17 Interpretation: Normal. No: Febrile Notes: PHYSICAL EXAMINATION: GENERAL: Well-appearing, well-nourished and in no acute distress. HEAD: Atraumatic, normocephalic. EYES: Pupils equal round and reactive to light, extraocular movements intact, conjunctiva are normal. ENT: Nares patent, oropharynx clear without exudates. Moist mucous membranes. NECK: Normal range of motion, supple without lymphadenopathy LUNGS: Breath sounds clear to auscultation bilaterally and equal. No wheezes rales or rhonchi. HEART: Regular rate and rhythm without murmurs ABDOMEN: Soft, tenderness to palpation along the right lower quadrant. No guarding or rebound. Female : deferred Musculoskeletal: Normal range of motion, no pitting or edema. No cyanosis. NEUROLOGICAL: Cranial nerves grossly intact. Normal speech, normal gait. Normal sensory, motor exams PSYCH: Normal mood, normal affect. SKIN: Warm, Dry, normal turgor, no rashes or lesions noted. Course - Re-evaluation Re-evalutation: Laboratory 08/11/17 08/11/17 12:10 12:50 Sodium 144.9 Potassium 3.9 Chloride 104 Carbon Dioxide 25 Anion Gap 16 BUN 12 Creatinine 0.62 Est GFR ( Amer) > 60 Est GFR (Non-Af Amer) > 60 Glucose 89 Calcium 10.1 Urine Color YELLOW Urine Appearance CLEAR Urine pH 8.0 Ur Specific [place] 1.017 Urine Protein NEGATIVE Urine Glucose (UA) NEGATIVE Urine Ketones 80 H Urine Blood NEGATIVE Urine Nitrite NEGATIVE Urine Bilirubin NEGATIVE Urine Urobilinogen 4.0 H Ur Leukocyte Esterase NEGATIVE Urine WBC (Auto) 2 Urine RBC (Auto) 0 Urine Bacteria (Auto) TRACE Squamous Epi Cells Auto 2 Urine Mucus (Auto) OCC Urine Ascorbic Acid NEGATIVE 08/11/17 15:12 26-year-old female with known recurrent stones presents after missing her urology appointment requesting pain medication. Patient has known stones that have required lithotripsy. She states that they 'screwed up her appointment'. On arrival vitals are reviewed. Patient is afebrile, normotensive and not hypoxic. She does not appear toxic or dehydrated. She is in no acute distress. Urinalysis is significant for blood without infection. CMP shows normal electrolytes and kidney function. I did provide the patient pain medication in the emergency department and urged her to follow-up with urology immediately. Did discuss the risk of multiple CAT scans causing cancer in the future with the patient who is agreeable that she does not need another CAT scan at this time. Patient provided the opportunity to ask questions, and express concerns. Discharge instructions discussed. Patient is agreeable with discharge home. Return indications explained and discussed with the patient who displays understanding. Patient encouraged to return to the emergency department immediately with any concerns. - Vital Signs Vital signs: Temp Pulse Resp BP Pulse Ox 98.1 F 72 20 120/69 99 08/11/17 10:17 08/11/17 10:17 08/11/17 10:17 08/11/17 10:17 08/11/17 10:17 - Laboratory Result Diagrams: 08/11/17 12:10 Laboratory results interpreted by me: 08/11/17 12:50 Urine Ketones 80 H Urine Urobilinogen 4.0 H Discharge - Discharge Clinical Impression: Right flank tenderness Hematuria Qualifiers: Hematuria type: unspecified type Qualified Code(s): R31.9 - Hematuria, unspecified Condition: Good Disposition: HOME, SELF-CARE Instructions: Kidney Stone ([facility]), Oral Narcotic Medication ([facility]), Pain Medication Injection ([facility]), Toradol Injection ([facility]) Additional Instructions: Please follow-up with the urologist that you were referred to. Prescriptions: Oxycodone HCl/Acetaminophen [Percocet 5-325 mg Tablet] 1 - 2 tab PO Q4H PRN #15 tablet PRN Reason: Promethazine HCl 25 mg PO Q8H #12 tablet Tamsulosin HCl [Flomax 0.4 mg Cap.sr] 0.4 mg PO DAILY #7 cap.sr.24h
[2017-08-11 15:42] VITALS: BP 116/88
== END 2017-08-11 15:40 | disposition home or self-care (01) ==
LOC: ER 09:46
DX: N20.0 Calculus of kidney (principal); R10.819 Abdominal tenderness, unspecified site; R31.9 Hematuria, unspecified; R10.31 Right lower quadrant pain; R10.9 Unspecified abdominal pain; R11.2 Nausea with vomiting, unspecified; F17.200 Nicotine dependence, unspecified, uncomplicated
CPT/HCPCS: 99284; 96372; 36415; 80048; 81001; J1885; J2270; S0119

== ENCOUNTER 2017-08-11 18:53 | Emergency (ER) | payer BC ==
[2017-08-11] MEDS ORDERED: KETOROLAC TROMETHAMINE INJ/PF 30 MG/1 ML SDV IM ONE (19:54)
[2017-08-11] MEDS ORDERED: MORPHINE SULFATE IR 15 MG TABLET PO ONE (19:54)
[2017-08-11 20:22] LABS: APPEARANCE,URINE CLEAR; BILIRUBIN,URINE NEGATIVE (NEGATIVE); COLOR,URINE YELLOW; GLUCOSE, URINE NEGATIVE (NEGATIVE); KETONES,URINE NEGATIVE (NEGATIVE); LEUKOCYTE ESTERASE,URINE NEGATIVE (NEGATIVE); NITRITE,URINE NEGATIVE (NEGATIVE); PROTEIN,URINE NEGATIVE (NEGATIVE); URINE SPECIFIC GRAVITY 1.009; UROBILINOGEN,URINE NEGATIVE mg/dL (<2.0)
[2017-08-11 20:32] LABS: ANION GAP 15 (5-19); BLOOD UREA NITROGEN 16 mg/dL (7-20); CALCIUM 9.5 mg/dL (8.4-10.2); CARBON DIOXIDE 25 mmol/L (22-30); CHLORIDE 104 mmol/L (98-107); GLUCOSE 111 mg/dL (75-110); POTASSIUM 3.3 mmol/L (3.6-5.0); SODIUM 143.9 mmol/L (137-145)
--- NOTE | 2017-08-11 20:37 | RADIOLOGY REPORT (SQ) ---
EXAM DESCRIPTION: KUB/ABDOMEN (SINGLE VIEW) COMPLETED DATE/TIME: 08/11/2017 8:28 pm REASON FOR STUDY: h/o stones, flank pain COMPARISON: 08/05/2017 NUMBER OF VIEWS: One view. TECHNIQUE: Supine radiographic image of the abdomen acquired. LIMITATIONS: None. FINDINGS: BOWEL GAS PATTERN: Normal bowel gas pattern. No dilated loops. CALCIFICATIONS: Stable bilateral renal calculi. Presumed phleboliths right hemipelvis unchanged in p osition. SOFT TISSUES: No gross mass or suggestion of organomegaly. HARDWARE: None in the abdomen. BONES: No acute fracture. No worrisome bone lesions. OTHER: No other significant finding. IMPRESSION: NO RADIOGRAPHIC EVIDENCE FOR ACUTE ABDOMINAL DISEASE. STABLE BILATERAL NEPHROLITHIASIS. TECHNICAL DOCUMENTATION: JOB ID: [id number] [employer]- All Rights Reserved Reading location - IP/workstation name: [email or web address]
--- NOTE | 2017-08-11 22:41 | RADIOLOGY REPORT (SQ) ---
EXAM DESCRIPTION: U/S RETROPERITON LTD COMPLETED DATE/TIME: 08/11/2017 10:30 pm REASON FOR STUDY: h/o stones, flank pain COMPARISON: 07/30/2009 TECHNIQUE: Dynamic and static grayscale images acquired of the kidneys and bladder and recorded on P ACS. Additional selected color Doppler and spectral images recorded. LIMITATIONS: None. FINDINGS: RIGHT KIDNEY: Normal size. Normal echogenicity. No solid or suspicious masses. No h ydronephrosis. Echogenic foci lower pole suggestive of calculi. LEFT KIDNEY: Normal size. Normal echogenicity. No solid or suspicious masses. No hydronephrosi s. No calcifications identified. BLADDER: No masses. OTHER FINDINGS: Right ovary visualize measuring 5.8 x 5.1 x 4.4 cm containing multiloculated cystic m ass versus several simple cysts. IMPRESSION: RIGHT RENAL CALCULI VISUALIZED. NO SIGNIFICANT HYDRONEPHROSIS. COMPLEX CYSTIC MASS VERSUS MULTIPLE CYSTS NOTED WITHIN THE RIGHT OVARY. RECOMMEND FOLLOW-UP PELVIC U LTRASOUND. TECHNICAL DOCUMENTATION: JOB ID: [id number] [employer]- All Rights Reserved Reading location - IP/workstation name: [email or web address]
--- NOTE | 2017-08-11 22:47 | ER Document Report ---
HPI - HPI Pain Level: 5 Notes: Patient is a 26-year-old female with a history of renal stones who presents to the ED for the second visit in 24 hours complaining of continued pain in her right flank area and intermittently in the right lower abdomen. Patient states that she did receive medications at her initial visit and was given pain medicine as well. Patient did take Flomax today. She is still able to eat and drink, but does have occasional nausea. She is urinating normally and having normal bowel movements otherwise. Patient is going to schedule an appoint with urologist. No other concerns or complaints at this time. She had a negative urine and basic metabolic panel earlier today. Denies any headache, fever, neck pain, URI, sore throat, chest pain, palpitations, syncope, cough, shortness of breath, wheeze, dyspnea, vomiting/diarrhea, urinary retention, dysuria, hematuria, loss of control of bowel or bladder, numbness/tingling, saddle anesthesia, muscle paralysis/weakness, or rash. - ROS Systems Reviewed and Negative: Yes All other systems reviewed and negative Past Medical History - Social History Smoking Status: Never Smoker Family History: Reviewed & Not Pertinent Patient has suicidal ideation: No Patient has homicidal ideation: No - Past Medical History Cardiac Medical History: Denies: Hx Coronary Artery Disease, Hx Heart Attack, Hx Hypertension Pulmonary Medical History: Denies: Hx Asthma, Hx Bronchitis, Hx COPD, Hx Pneumonia Neurological Medical History: Denies: Hx Cerebrovascular Accident, Hx Seizures Renal/ Medical History: Reports: Hx Kidney Stones. Denies: Hx Peritoneal Dialysis Musculoskeltal Medical History: Denies Hx Arthritis Past Surgical History: Reports: Hx Kidney (Renal Surgery) - stent for stones - Immunizations Hx Diphtheria, Pertussis, Tetanus Vaccination: Yes Vertical Provider Document - CONSTITUTIONAL Agree With Documented VS: Yes Notes: PHYSICAL EXAMINATION: GENERAL: Well-appearing, well-nourished and in no acute distress. LUNGS: Breath sounds clear to auscultation bilaterally and equal. No wheezes rales or rhonchi. HEART: Regular rate and rhythm without murmurs, rubs, gallops. ABDOMEN: Soft, nontender, nondistended abdomen. No guarding, no rebound. No masses appreciated. Normal bowel sounds present. + mild rt CVA tenderness. Musculoskeletal: FROM to passive/active. Strength 5+/5. Extremities: No cyanosis, clubbing, or edema b/l. Peripheral pulses 2+. Capillary refill less than 3 seconds. NEUROLOGICAL: Normal speech, normal gait. PSYCH: Normal mood, normal affect. SKIN: Warm, Dry, normal turgor, no rashes or lesions noted. - INFECTION CONTROL TRAVEL OUTSIDE OF THE [place] IN LAST 30 DAYS: No Course - Re-evaluation Re-evalutation: 08/11/17 22:44 Patient is an afebrile, well-hydrated, 26-year-old female who presents to the ED with continued renal stones bilaterally that appear to be stable based on KUB today. Vitals are acceptable. PE is otherwise unremarkable. BMP and urinalysis were unremarkable for any acute pathology. Renal ultrasound was also unremarkable for any acute pathology aside from noting an ovarian cyst rt side. Patient is tolerating p.o. any difficulties. She has no significant tachycardia, tachypnea, or hypoxia. Patient was given Toradol. Patient artery has medications at home. No other labs or imaging warranted at this time based on H&P. Low suspicion for any urosepsis, meningitis, acute abdomen, severe dehydration, pyelonephritis. Patient to monitor symptoms closely and seek medical attention with acute changes. Recheck with your PCM in 3-5 days. Schedule an appoint with urology for further evaluation and management. Return to the ED with any worsening/concerning symptoms otherwise as reviewed discharge. Patient is in agreement. - Laboratory Result Diagrams: 08/11/17 20:09 Laboratory results interpreted by me: 08/11/17 20:09 Potassium 3.3 L Glucose 111 H Discharge - Discharge Clinical Impression: Kidney stone Condition: Stable Disposition: HOME, SELF-CARE Instructions: Kidney Stone ([facility]) Additional Instructions: Push fluids (i.e. water, cranberry juice) Proper hygenic technique Keep the skin clean Tylenol/ibuprofen as needed Take medications as directed F/u with your PCM in 3-5 days for a recheck Schedule consult with the urologist for further evaluation and management Return to the ED with any worsening symptoms and/or development of fever, headache, chest pain, palpitations, syncope, shortness of breath, trouble breathing, abdominal pain, n/v/d, blood in stool/urine, loss of control of bowel /bladder, urinary retention, or other worsening symptoms that are concerning to you. Referrals: JOCY SANTIZO MD [VIOLETTA BAILEY] - Follow up in 3-5 days
[2017-08-11 23:03] VITALS: BP 136/72
== END 2017-08-11 23:03 | disposition home or self-care (01) ==
LOC: ER 18:53
DX: N20.0 Calculus of kidney (principal); N83.201 Unspecified ovarian cyst, right side
CPT/HCPCS: 99284; 36415; 80048; 81001; 74018; 76775; J1885

== ENCOUNTER 2018-11-18 07:24 | Emergency (ER) | payer SELFPAY ==
[2018-11-18 08:07] LABS: ABSOLUTE BASOPHILS # (AUTO) 0.1 10^3/uL (0.0-0.2); ABSOLUTE EOSINOPHILS # (AUTO) 0.1 10^3/uL (0.0-0.6); ABSOLUTE MONOCYTES (AUTO) 0.4 10^3/uL (0.1-1.4); ABSOLUTE NEUT (AUTO) 6.6 10^3/uL (1.7-8.2); BASOPHILS % (AUTO) 0.8 % (0-2); EOSINOPHILS % (AUTO) 1.5 % (0-6); HEMATOCRIT 38.8 % (36.0-47.0); HEMOGLOBIN 13.1 g/dL (12.0-15.5); LYMPHOCYTES % (AUTO) 21.6 % (13-45); MEAN CORPUSCULAR HEMOGLOBIN 29.1 pg (27.0-33.4); MEAN CORPUSCULAR HGB CONC 33.7 g/dL (32.0-36.0); MEAN CORPUSCULAR VOLUME 86 fl (80-97); MONOCYTES % (AUTO) 4.8 % (3-13); PLATELET COUNT 334 10^3/uL (150-450); RED CELL DISTRIBUTION WIDTH 13.5 % (11.5-14.0); SEGMENTED NEUTROPHILS % (AUTO) 71.3 % (42-78); TOTAL CELLS COUNTED % (AUTO) 100 %; WHITE BLOOD COUNT 9.3 10^3/uL (4.0-10.5)
[2018-11-18] MEDS ORDERED: NORMAL SALINE 1000 ML 1,000 ML IV ONE (08:07)
[2018-11-18 08:12] LABS: APPEARANCE,URINE SLIGHTLY-CLOUDY; BILIRUBIN,URINE NEGATIVE (NEGATIVE); COLOR,URINE YELLOW; GLUCOSE, URINE NEGATIVE (NEGATIVE); KETONES,URINE NEGATIVE (NEGATIVE); LEUKOCYTE ESTERASE,URINE TRACE (NEGATIVE); NITRITE,URINE NEGATIVE (NEGATIVE); PROTEIN,URINE NEGATIVE (NEGATIVE); URINE SPECIFIC GRAVITY 1.021; UROBILINOGEN,URINE NEGATIVE mg/dL (<2.0)
--- NOTE | 2018-11-18 08:18 | ER Document Report ---
Entered by JENIFFER RAMIREZ SCRIBE 11/18/18 0756 Acting as scribe for:RADHA CHOWDHURY MD ED GI/ - General Chief Complaint: Flank Pain Stated Complaint: FLANK PAIN Time Seen by Provider: 11/18/18 07:51 Mode of Arrival: Ambulatory Information source: Patient Notes: 27 year old female with kidney stones that presents to the emergency department today with complaints of right sided flank pain for the last x3 days with associated urinary urgency, nausea, chills, and some burning with urination. Patient states that she had some left sided flank pain at the beginning of the week which has since subsided. Patient states her pain now is over the right flank, right lower quadrant, and suprapubically. Patient's LMP was 10/30. Patient denies vomiting or fevers. TRAVEL OUTSIDE OF THE [place] IN LAST 30 DAYS: No - Related Data Allergies/Adverse Reactions: gluten [Gluten] Allergy (Verified 11/18/18 07:26) Past Medical History - General Information source: Patient - Social History Smoking Status: Current Every Day Smoker Cigarette use (# per day): Yes - 1/2 ppd Frequency of alcohol use: None Drug Abuse: None Occupation: [employer] Family History: Reviewed & Not Pertinent Renal/ Medical History: Reports: Hx Kidney Stones, Hx Ovarian Cysts Past Surgical History: Reports: Hx Cholecystectomy, Hx Gynecologic Surgery - ovarian cyst, Hx Kidney (Renal Surgery) - stent for stones, Other - PCOS - Immunizations Hx Diphtheria, Pertussis, Tetanus Vaccination: Yes Review of Systems - Review of Systems Constitutional: See HPI, Chills. denies: Fever EENT: No symptoms reported Cardiovascular: No symptoms reported Respiratory: No symptoms reported Gastrointestinal: See HPI, Nausea. denies: Vomiting Genitourinary: See HPI, Burning, Flank pain, Urgency Female Genitourinary: See HPI, Last menstrual period - 10/30 Musculoskeletal: No symptoms reported Skin: No symptoms reported Hematologic/Lymphatic: No symptoms reported Neurological/Psychological: No symptoms reported -: Yes All other systems reviewed and negative Physical Exam - Vital signs Vitals: Temp Pulse Resp BP Pulse Ox 97.8 F 102 H 20 108/68 98 11/18/18 07:30 11/18/18 07:30 11/18/18 07:30 11/18/18 07:30 11/18/18 07:30 - Notes Notes: Physical Exam: General: Alert, appears uncomfortable, patient standing up pacing the floor with IV running. HEENT: Normocephalic. Atraumatic. PERRL. Extraocular movements intact. Oropharynx clear. Neck: Supple. Non-tender. Respiratory: No respiratory distress. Clear and equal breath sounds bilaterally. Cardiovascular: Regular rate and rhythm. Abdominal: Mild RLQ, LLQ, and suprapubic tenderness with palpation. No distension. Normal Bowel Sounds. Back: Bilateral flank and lumbar musculature tenderness with palpation. Extremities: Moves all four extremities. Upper extremities: Normal inspection. Normal ROM. Lower extremities: Normal inspection. No edema. Normal ROM. Neurological: Normal cognition. AAOx4. Normal speech. Psychological: Normal affect. Normal Mood. Skin: Warm. Dry. Normal color. Course - Vital Signs Vital signs: Temp Pulse Resp BP Pulse Ox 97.8 F 102 H 20 108/68 98 11/18/18 07:30 11/18/18 07:30 11/18/18 07:30 11/18/18 07:30 11/18/18 07:30 - Laboratory Result Diagrams: 11/18/18 07:50 11/18/18 07:50 Laboratory results interpreted by me: 11/18/18 07:50 Urine Blood SMALL H Ur Leukocyte Esterase TRACE H - Diagnostic Test Radiology reviewed: Image reviewed, Reports reviewed - CT scan abdomen pelvis without contrast shows nonobstructing bilateral renal calculi without ureteral stones or any other abnormalities. Discharge - Discharge Clinical Impression: Musculoskeletal back pain Condition: Stable Disposition: HOME, SELF-CARE Additional Instructions: Flank Pain: Your flank pain appears to be coming from the muscles in your back. Pain in the flank can be caused by a muscle strain or spasm. Sometimes a kidney stone causes pain, but can't be found on our tests. Infection in the kidney should be evident on a urine test. Early shingles can occasionally cause flank pain, without the rash that proves the diagnosis. On rare occasions, disease of the pancreas, aorta, spleen, or colon can create pain in the flank. At this time, there's no evidence of a dangerous condition, and it seems safe for you to be at home. If the pain goes away and does not come back, no further testing will be needed. If pain persists, or becomes more severe, we may need to repeat some tests or order additional new testing. Blood in the urine, urgency to urinate frequently, and pain that radiates to the groin can indicate a kidney stone. Fever may mean that the pain is due to infection, either of the kidney or the colon (diverticulitis). If your pain is early shingles, you should develop an eruption of blisters in the painful area within a few days. Call the doctor or return if you have pain that is spreading or becoming more severe, pain that does not resolve with time, fever, or any other new symptoms. Urinary Tract Infection: Your evaluation SUGGESTS that you MIGHT have a urinary tract infection. This is due to germs growing in the bladder. This is a common problem. This infection usually responds quickly to antibiotics. Your antibiotic should be taken exactly as prescribed. Drink plenty of fluids -- three to four quarts a day. The doctor obtained a culture, the results will be back in two days. You should call to see if a change in treatment is needed. A repeat urinalysis after you finish treatment is often recommended. The physician will let you know if further testing is required. Call the doctor if you develop fever, chills, flank pain, inability to urinate, or blood in the urine. The urinalysis suggest that you may have a urinary tract infection. The urine will be cultured, you will be started on an antibiotic for this. The CT scan shows some nonobstructing stones in your kidneys, but none in the ureters. Your pain is coming from the muscles in your back, not related to the kidneys or the possible urine infection. Take the medications as prescribed for your possible urine infection. Drink plenty of fluids. Take Tylenol and ibuprofen for your back muscle pain. Follow-up with a local medical doctor for reevaluation if you are not improving. RETURN TO THE EMERGENCY ROOM IF ANY NEW OR WORSENING SYMPTOMS. Prescriptions: Cephalexin Monohydrate [Keflex 500 mg Capsule] 500 mg PO TID #12 capsule Scribe Attestation: 11/18/18 09:37 I personally performed the services described in the documentation, reviewed and edited the documentation which was dictated to the scribe in my presence, and it accurately records my words and actions. I personally performed the services described in the documentation, reviewed and edited the documentation which was dictated to the scribe in my presence, and it accurately records my words and actions.
[2018-11-18 08:25] LABS: ALBUMIN 4.4 g/dL (3.5-5.0); ALKALINE PHOSPHATASE 101 U/L (38-126); ANION GAP 11 (5-19); ASPARTATE AMINO TRANSFERASE 15 U/L (14-36); BILIRUBIN,DIRECT 0.4 mg/dL (0.0-0.4); BILIRUBIN,TOTAL 0.4 mg/dL (0.2-1.3); BLOOD UREA NITROGEN 16 mg/dL (7-20); CARBON DIOXIDE 24 mmol/L (22-30); CHLORIDE 103 mmol/L (98-107); GLUCOSE 95 mg/dL (75-110); POTASSIUM 4.6 mmol/L (3.6-5.0); TOTAL PROTEIN 7.7 g/dL (6.3-8.2)
[2018-11-18] MEDS ORDERED: KETOROLAC TROMETHAMINE INJ/PF 30 MG/1 ML SDV IV ONE (08:43)
--- NOTE | 2018-11-18 09:21 | RADIOLOGY REPORT (SQ) ---
EXAM DESCRIPTION: CT ABD/PELVIS NO ORAL OR IV COMPLETED DATE/TIME: 11/18/2018 9:05 am REASON FOR STUDY: Right flank pain with hematuria COMPARISON: None. TECHNIQUE: CT scan of the abdomen and pelvis performed without intravenous or oral contrast. Images reviewed with lung, soft tissue, and bone windows. Reconstructed coronal and sagittal MPR images revi ewed. All images stored on PACS. All CT scanners at this facility use dose modulation, iterative reconstruction, and/or weight based d osing when appropriate to reduce radiation dose to as low as reasonably achievable (ALARA). [facility]: Dose Right [facility]: CareDose [facility]: Dose Right [facility]: Teradose 4D [facility]: Smart [employer] RADIATION DOSE: CT Rad equipment meets quality standard of care and radiation dose reduction techniq ues were employed. CTDIvol: 8.9 mGy. DLP: 522 mGy-cm.mGy. LIMITATIONS: None. FINDINGS: LOWER CHEST: No significant findings. No nodules or infiltrates. NON-CONTRASTED LIVER, SPLEEN, ADRENALS: Evaluation limited by lack of IV contrast. No identified sign ificant masses. PANCREAS: No masses. No peripancreatic inflammatory changes. GALLBLADDER: Surgically absent. RIGHT KIDNEY AND URETER: No suspicious masses. Assessment limited by lack of IV contrast. Several r enal calculi measuring up to 2 mm. No hydronephrosis or hydroureter. LEFT KIDNEY AND URETER: No suspicious masses. Assessment limited by lack of IV contrast. Several re nal calculi measuring up to 3 mm. No hydronephrosis or hydroureter. AORTA AND RETROPERITONEUM: No aneurysm. No retroperitoneal masses or adenopathy. BOWEL AND PERITONEAL CAVITY: No obvious masses or inflammatory changes. No free fluid. APPENDIX: Normal. PELVIS, BLADDER, AND ABDOMINAL WALL:No abnormal masses. No free fluid. Bladder normal. BONES: No significant findings. OTHER: No other significant finding. IMPRESSION: Nonobstructing bilateral renal calculi. COMMENT: Quality ID # [id number]: Final reports with documentation of one or more dose reduction techniques (e.g., Automated exposure control, adjustment of the mA and/or kV according to patient size, use of iterative reconstruction technique) TECHNICAL DOCUMENTATION: JOB ID: [id number] [employer]- All Rights Reserved Reading location - IP/workstation name: [email or web address]
[2018-11-18 10:09] VITALS: BP 107/74
== END 2018-11-18 10:08 | disposition home or self-care (01) ==
LOC: ER 07:24
DX: M54.9 Dorsalgia, unspecified (principal); R10.9 Unspecified abdominal pain; R39.15 Urgency of urination; R11.0 Nausea; R30.0 Dysuria; F17.210 Nicotine dependence, cigarettes, uncomplicated; Z87.442 Personal history of urinary calculi; Z90.49 Acquired absence of other specified parts of digestive tract
CPT/HCPCS: 99284; 36415; 87086; 83690; 84703; 85025; 80053; 81001; 74176; J1885; J7030